=== PATIENT | female | born 1965 | race American Indian/Alaskan Native ===

== ENCOUNTER 2019-12-07 08:11 | Day surgery (SDC) | payer MEDICAID ==
[2019-12-07] MEDS ORDERED: BUPIVACAINE/PF (0.5%) 5 MG/1 ML 30 ML VIAL INFILTRATI ONE ×2 (09:21→09:57)
[2019-12-07] MEDS ORDERED: LIDOCAINE (1%) 10 MG/1 ML VIAL 20 ML MDV ONE ×2 (09:21→09:54)
[2019-12-07] MEDS ORDERED: LIDOCAINE (1%) 10 MG/1 ML VIAL 20 ML MDV INFILTRATI ONE (09:58)
[2019-12-07 10:18] VITALS: BP 136/73
--- NOTE | 2019-12-07 12:15 | XRay Report ---
INTRAOPERATIVE FLUOROSCOPY: RIGHT KNEE INJECTION INDICATION: RT KNEE PAIN. TECHNIQUE: Intraoperative spot images were obtained during the procedure. FINDINGS: Orient are seen from an anterior approach above and below the right knee joint. See procedure note f or details. Fluoroscopy Time: 40 seconds. Fluoroscopy Images: 2. Signer Name: Jr Villalpando MD Signed: 12/07/2019 12:10 PM Workstation Name: [id number]
--- NOTE | 2019-12-11 12:24 | Procedure Note ---
Date of procedure: 12/07/19 Pre-op diagnosis: Chronic right knee pain Post-op diagnosis: same Procedure: Right geniculate Nerve Block under C-arm fluroscopy procedure The patient taken to the operating room where she was place on the table supine with padded triangular pad placed along the potileal fossa. The [left] knee prepped and draped in usual sterile fashion. 22-gauge spinal needle used to locate areas for injection, the medial and lateral supracondylar ridges, 2 cm proximal to the superior pole of the patella as well as the medial border of the proximal tibia. These areas were anesthized using lidocaine 1% followed by placement of spinal needle near the medial, and lateral geniculate nerves. A mixture of marcaine and lidocaine injected into the deeper structures. There were no complications noted and he tolerated well. Anesthesia: local Surgeon: MARIA D SCHULER Estimated blood loss: minimal Pathology: none Condition: stable Disposition: observation
== END 2019-12-07 08:12 | disposition home or self-care (01) ==
LOC: OR 08:11
PROVIDERS: ATTEND Orthopaedic Surgery
DX: M25.561 Pain in right knee (principal); G89.29 Other chronic pain; G43.909 Migraine, unspecified, not intractable, without status migrainosus; E78.00 Pure hypercholesterolemia, unspecified; I10 Essential (primary) hypertension; F32.9 Major depressive disorder, single episode, unspecified; Z79.82 Long term (current) use of aspirin; Z79.899 Other long term (current) drug therapy; Z98.49 Cataract extraction status, unspecified eye; Z90.710 Acquired absence of both cervix and uterus; F41.9 Anxiety disorder, unspecified; Z98.890 Other specified postprocedural states

== ENCOUNTER 2020-07-25 08:27 | Day surgery (SDC) | payer MEDICAID ==
[~2020-07-25 08:27] MED LIST: .SODIUM CHLORIDE 0.9% IRRIG SOLN 3000 ML IR ONE; ACETAMINOPHEN 500 MG TAB PO SCH; CELECOXIB 200 MG CAP PO NR; EPINEPHrine/PF 1 MG/1 ML INJ IV ONE; GABAPENTIN 300 MG CAP PO NR; LACTATED RINGERS 1,000 ML IV SCH; MIDAZOLAM 2 MG/2 ML INJ IV NR; SODIUM CHLORIDE 0.9% P/F 10 ML VIAL INFILTRATI ONE; ceFAZolin/STERILE WATER 2 GM/20 ML SYRINGE IV NR; fentaNYL 100 MCG/2 ML INJ IV PRN; methylPREDNISolone ACETATE 40 MG/1 ML INJ INTRA-ARTI ONE
[2020-07-25] MEDS ORDERED: BUPIVACAINE/PF (0.5%) 5 MG/1 ML 30 ML VIAL INFILTRATI ONE (09:55)
[2020-07-25] MEDS ORDERED: BUPIVACAINE/PF (0.25%) 2.5 MG/ML 30 ML VIAL INFILTRATI ONE (09:55)
[2020-07-25] MEDS ORDERED: methylPREDNISolone ACETATE 40 MG/1 ML INJ ONE (09:57)
[2020-07-25] MEDS ORDERED: EPINEPHrine/PF 1 MG/1 ML INJ ONE (09:57)
[2020-07-25] MEDS ORDERED: HYDROcodone/ACETAMINOPHEN 5-325 MG TAB PO PRN (10:04)
[2020-07-25] MEDS ORDERED: ONDANSETRON 4 MG/2 ML INJ IV PRN (10:04)
[2020-07-25] MEDS ORDERED: fentaNYL 100 MCG/2 ML INJ IV PRN (10:04)
--- NOTE | 2020-07-25 10:06 | Anesthesia Consultation ---
Anesthesia Consult and Med Hx Date of service: 07/25/20 - Airway Anesthetic Teeth Evaluation: Good ROM Head & Neck: Adequate Mental/Hyoid Distance: Adequate Mallampati Class: Class I Intubation Access Assessment: Probably Good - Pre-Operative Health Status ASA Pre-Surgery Classification: ASA3 Proposed Anesthetic Plan: General Nerve Block: IS - Pulmonary Hx Smoking: No Hx Respiratory Symptoms: No Hx Sleep Apnea: Yes (no CPAP) - Cardiovascular System Hx Hypertension: Yes Hx Heart Attack/AMI: No Hx Percutaneous Transluminal Coronary Angioplasty (PTCA): No - Central Nervous System CVA: No Hx Psychiatric Problems: Yes (anxiety/depression w/ prn xanax) - Endocrine Hx Renal Disease: No Hx Liver Disease: No Hx Insulin Dependent Diabetes: No Hx Non-Insulin Dependent Diabetes: No Hx Thyroid Disease: No - Hematic Hx Anemia: No - Other Systems Hx Obesity: Yes (BMI 44) - Additional Comments Anesthesia Medical History Comments: No hx anesthetic complications.
--- NOTE | 2020-07-25 10:07 | Anesthesia Day of Surgery ---
Anesthesia Day of Surgery - Day of Surgery Patient Examined: Yes Patient H&P Reviewed: Yes Patient is NPO: Yes Beta Blockers: No (will hold AM dose for HR 50s. )
[2020-07-25] MEDS ORDERED: fentaNYL 100 MCG/2 ML INJ ONE (10:58)
[2020-07-25] MEDS ORDERED: LIDOCAINE MPF (2%) 20 MG/1 ML VIAL 5 ML ONE (10:58)
[2020-07-25] MEDS ORDERED: SUCCINYLCHOLINE CHLORIDE 200 MG/10 ML INJ MDV ONE (10:58)
[2020-07-25] MEDS ORDERED: propofoL 200 MG/20 ML VIAL IV ONE (10:59)
[2020-07-25] MEDS ORDERED: ePHEDrine SULFATE 50 MG/1 ML INJ ONE (11:20)
[2020-07-25] MEDS ORDERED: SODIUM CHLORIDE P/F VIAL 10 ML 10 ML ONE (11:52)
[2020-07-25] MEDS ORDERED: EPINEPHrine/PF 1 MG/1 ML INJ IV ONE (12:03)
[2020-07-25] MEDS ORDERED: .SODIUM CHLORIDE 0.9% IRRIG SOLN 3000 ML IR ONE ×4 (12:03)
[2020-07-25] MEDS ORDERED: SODIUM CHLORIDE 0.9% P/F 10 ML VIAL INFILTRATI ONE (14:41)
[2020-07-25] MEDS ORDERED: ONDANSETRON 4 MG/2 ML INJ ONE (14:45)
--- NOTE | 2020-07-25 15:21 | Procedure Note ---
Date of procedure: 07/25/20 Pre-op diagnosis: Right shoulder pain full-thickness rotator cuff tear Post-op diagnosis: same Procedure: Arthroscopy right shoulder with subacromial decompression and rotator cuff tendon using suture anchors Procedure The patient was brought to the OR after being given a scalene nerve block for postop pain management . She was placed in the OR table in supine position following induction and intubation by anesthesia patient was placed in the [left] lateral decubitus position the right upper extremity was prepped and draped in the usual sterile manner. A timeout procedure was done to identify the patient and the correct operative site. Routine arthroscopic portals were made following introduction of the arthroscope and instruments and insufflation of the subacromial space with normal saline solution patient was noted to have a smal full-thickness rotator cuff tear which involved the supraspinatus tendon near the insertion at the footprint, in addition she was also noted to have mild synovial bursal thickening as well as some impingement from the acromion and acromioclavicular joints. Using a tissue ablator the soft tissue was removed from both the bursal tissues as well as the periosteal tissues overlying the distal acromion and acromioclavicular joints A large bur was used to debride the bony impingement again this was done under arthroscopic visualization. The anatomic footprint was then seen and debrided using the tissue ablator. The rotator cuff tendon was grasped using a tissue grasper and appeared to move well in the direction of anatomic repair at the footprint. Next suture anchor was placed into these supraspinatus tendon anteriorly, the suture anchor secured into the greater tuberosity followed by tightening of the sutures and pulling the rotator cuff tendon firmly onto the anatomic footprint arthroscopic quin tographs were obtained showing good placement of the rotator cuff repair following this the wound was copiously irrigated via stab wounds were repaired with 2 postop dressings were applied the patient was extubated and was taken to postanesthesia recovery in stable condition. Anesthesia: MAC, regional Surgeon: MARIA D SCHULER (Tonya Julien, 1st assist) Estimated blood loss: minimal Pathology: none Condition: stable Disposition: PACU
--- NOTE | 2020-07-25 16:40 | Post Anesthesia Evaluation ---
- Post Anesthesia Evaluation Patient Participated: Yes Airway Patent: Yes Stable Respiratory Function: Yes Nausea/Vomiting: No Temp > 96.8F: Yes Pain Manageable: Yes Adequeate Hydration: Yes Anesthesia Complications: No Block Receding Appropriately: Yes
[2020-07-25 16:46] VITALS: BP 108/61
== END 2020-07-25 17:15 | disposition home or self-care (01) ==
LOC: OR 08:27
PROVIDERS: ATTEND Orthopaedic Surgery
DX: M75.101 Unspecified rotator cuff tear or rupture of right shoulder, not specified as traumatic (principal); E78.00 Pure hypercholesterolemia, unspecified; I10 Essential (primary) hypertension; G47.30 Sleep apnea, unspecified; E66.9 Obesity, unspecified; K21.9 Gastro-esophageal reflux disease without esophagitis; F32.9 Major depressive disorder, single episode, unspecified; F41.9 Anxiety disorder, unspecified; Z79.899 Other long term (current) drug therapy; Z79.82 Long term (current) use of aspirin; Z98.49 Cataract extraction status, unspecified eye; Z90.710 Acquired absence of both cervix and uterus; Z98.890 Other specified postprocedural states
CPT/HCPCS: 29826; 29827; 64415; A4217; C1713; J0171; J0330; J0690; J2250; J2405; J2704; J3010; J7120; V2790; J1030